=== PATIENT | male | born 1950 | race Two or more races ===

== ENCOUNTER 2017-12-03 15:17 | Outpatient (CLI) | payer OTHER | END 2017-12-03 15:33 | disposition home or self-care (01) | LOC: LAB 15:17 | DX: R97.20 Elevated prostate specific antigen [PSA] (principal) ==

== ENCOUNTER 2018-02-20 07:16 | Outpatient (CLI) | payer OTHER | END 2018-02-20 07:26 | disposition home or self-care (01) | LOC: SONOGRAMA 07:16 | DX: R97.20 Elevated prostate specific antigen [PSA] (principal) ==